=== PATIENT | female | born 1995 | race Two or more races ===

== ENCOUNTER 2023-12-12 10:30 | Emergency (ER) | payer MEDICAID ==
[~2023-12-12] VITALS: Ht 162.6 cm; Wt 125.0 kg
[2023-12-12 10:58] VITALS: BP 144/97; PULSE 79; RESP 16; TEMP 97.9; O2SAT 98
[2023-12-12] MEDS: KETOROLAC TROMETH 60MG/2ML VIAL IM ONE (11:19)
[2023-12-12] MEDS: HYDROcodone-ACET 10/325MG TAB PO ONE (11:19)
[2023-12-12] MEDS ORDERED: PRED20TA2 PO (11:40)
[2023-12-12] MEDS ORDERED: TRAM-626 PO (11:40)
== END 2023-12-12 11:52 | disposition home or self-care (01) ==
LOC: ER 10:30
DX: M54.42 Lumbago with sciatica, left side (principal); M54.41 Lumbago with sciatica, right side; Z79.899 Other long term (current) drug therapy
CPT/HCPCS: 96372; 99283; J1885

== ENCOUNTER 2023-12-27 18:19 | Emergency (ER) | payer MEDICAID ==
[~2023-12-27] VITALS: Ht 167.6 cm; Wt 120.2 kg
[~2023-12-27 18:19] MED LIST: PRED20TA2 PO; TRAM-626 PO
[2023-12-27 18:28] VITALS: BP 150/92; PULSE 78; RESP 17; O2SAT 97
[2023-12-27] MEDS ORDERED: ALPRAZolam 0.5 MG TAB PO ONE (19:00)
== END 2023-12-28 01:50 | disposition home or self-care (01) ==
LOC: ER 18:19
DX: F41.9 Anxiety disorder, unspecified (principal); F32.9 Major depressive disorder, single episode, unspecified; E66.01 Morbid (severe) obesity due to excess calories; Z68.41 Body mass index [BMI] 40.0-44.9, adult